=== PATIENT | male | born 1955 | race Caucasian/White ===

== ENCOUNTER 2021-01-01 21:17 | Emergency (ER) | payer OTHER, SELFPAY ==
--- NOTE | ~2021-01-01 | CT_ITS ---
EXAMINATION: CT brain wo con DATE: 01/01/2021 22:02 INDICATION: Head injury. TECHNIQUE: Computed tomography (CT) of the head was performed without intravenous contrast. The mA wa s adjusted according to patient size. Iterative reconstruction technique was employed. The dose-lengt h product was 605.33 mGy-cm. COMPARISON: Head CT 06/08/2009 FINDINGS: There is no intracranial hemorrhage, acute infarction, or abnormal intracranial mass lesion . The ventricles are normal in size. The orbits are normal. The paranasal sinuses are clear. There is a right frontal lateral scalp hematoma. The mastoid air cells are normal. IMPRESSION: 1. Normal brain. Reviewed, dictated and finalized at location A. IMPRESSION: 1. Normal brain.
[2021-01-01 21:30] VITALS: BP 177/86; PULSE 100; RESP 16; TEMP 36.6; O2SAT 97
--- NOTE | 2021-01-01 21:36 | PC.NURSE ---
EDP Norwood updated on patient's presentation and symptoms. Per EDP Norwood via verbal order read-back, order CT of brain.
[2021-01-01 22:51] VITALS: BP 161/96; PULSE 91; RESP 18; O2SAT 98
--- NOTE | 2021-01-01 22:57 | ED.HEATRA ---
HPI - Head Injury General Chief complaint: Head Injury <Abel Norwood MD - Last Filed: 01/02/21 00:44> Stated complaint: fall with head injury <Abel Norwood MD - Last Filed: 01/02/21 00:44> Time Seen by Provider: 01/01/21 22:47 <Abel Norwood MD - Last Filed: 01/02/21 00:44> Source: patient <Abel Norwood MD - Last Filed: 01/02/21 00:44> Mode of arrival: ambulatory <Abel Norwood MD - Last Filed: 01/02/21 00:44> Limitations: no limitations <Abel Norwood MD - Last Filed: 01/02/21 00:44> History of Present Illness HPI Narrative: Patient is a 65-year-old male complaining of head injury after he tripped and fell landing on her right side of his head and lips prior to arrival. Patient states that his head pain is mild. Patient has a laceration on the right frontal head and right lower lip laceration. Patient denies any loss of consciousness. Patient was able to get up and ambulate after the fall. Patient was asymptomatic prior to the fall. Patient denies any neck pain, chest pain, back pain, pelvic pain, hip pain or any extremity pain/injury. <Abel Norwood MD - Last Filed: 01/02/21 00:44> Related Data Allergies/Adverse reactions: Allergies Allergy/AdvReac Type Severity Reaction Status Date / Time adhesive tape Allergy Mild Verified 07/08/09 10:08 <Abel Norwood MD - Last Filed: 01/02/21 00:44> Review of Systems Review of Systems: All systems reviewed & are unremarkable except as noted in HPI and below <Abel Norwood MD - Last Filed: 01/02/21 00:44> Constitutional: Constitutional: Denies body ache(s), Denies chills, Denies excessive sweating, Denies fatigue, Denies fever(s), Denies headache(s), Denies lethargy, Denies malaise, Denies weakness and Denies weight loss <Abel Norwood MD - Last Filed: 01/02/21 00:44> Eyes: Eyes: Denies blurry vision, Denies change in vision and Denies loss of vision <Abel Norwood MD - Last Filed: 01/02/21 00:44> ENT: Denies dizziness, Denies ear discharge, Denies headache(s), Denies epistaxis, Denies nasal congestion, Denies neck pain, Denies throat swelling and Denies tongue swelling <Abel Norwood MD - Last Filed: 01/02/21 00:44> Cardiovascular: Cardiovascular: Denies chest pain, Denies chest pain at rest, Denies chest pain with activity, Denies diaphoresis, Denies rapid heart rate, Denies edema, Denies irregular heart rhythm, Denies lightheadedness, Denies palpitations, Denies dyspnea and Denies dyspnea on exertion <Abel Norwood MD - Last Filed: 01/02/21 00:44> Respiratory: Respiratory: Denies chest congestion, Denies cough, Denies hemoptysis, Denies dyspnea and Denies dyspnea on exertion <Abel Norwood MD - Last Filed: 01/02/21 00:44> Gastrointestinal: Gastrointestinal: Denies abdominal pain, Denies melena, Denies hematochezia, Denies diarrhea, Denies nausea, Denies vomiting and Denies hematemesis <Abel Norwood MD - Last Filed: 01/02/21 00:44> Musculoskeletal: Musculoskeletal: Denies abnormal gait, Denies deformity, Denies joint swelling, Denies limited range of motion, Denies neck pain and Denies numbness <Abel Norwood MD - Last Filed: 01/02/21 00:44> Neurologic: Denies Abnormal speech present, Denies abnormal gait, Denies confusion, Denies dizziness, Denies headache(s), Denies focal weakness, Denies loss of vision, Denies numbness, Denies Other visual disturbances, Denies Sensory deficit (Neuro) and Denies weakness <Abel Norwood MD - Last Filed: 01/02/21 00:44> Psychiatric: Psychiatric: Denies confusion, Denies depression, Denies auditory hallucinations, Denies homicidal ideation and Denies suicidal ideation <Abel Norwood MD - Last Filed: 01/02/21 00:44> Endocrine: Endocrine: Denies cold intolerance, Denies excessive sweating, Denies fatigue, Denies heat intolerance and Denies palpitations <bAel Norwood MD - Last Filed: 01/02/21 00:44> H
[2021-01-01] MEDS: TETANUS,DIPHTHERIA,AC PERTUSSIS ADULT (0.5 ML) BOOSTRIX IM (23:04)
--- NOTE | 2021-01-01 23:12 | PC.NURSE ---
Patient report received from FIORDALIZA Odom. Assumed care of patient at this time.
== END 2021-01-02 00:52 | disposition home or self-care (01) ==
PROVIDERS: Emergency Provider Emergency Medicine; PCP Family Medicine
DX: S01.511A Laceration without foreign body of lip, initial encounter (principal); S01.01XA Laceration without foreign body of scalp, initial encounter; Z23 Encounter for immunization; I10 Essential (primary) hypertension; W01.190A Fall on same level from slipping, tripping and stumbling with subsequent striking against furniture, initial encounter
CPT/HCPCS: 12013; 70450; 90471; 90715; 99284